=== PATIENT | female | born 1980 | race African-American/Black ===

== ENCOUNTER 2023-12-06 07:41 | Outpatient (CLI) | payer BC, SELFPAY ==
--- NOTE | ~2023-12-06 | MR_ITS ---
EXAMINATION: MR knee LT wo con DATE: 12/06/2023 09:27 INDICATION: Mechanical tear of the medial meniscus of the left knee TECHNIQUE: Magnetic resonance imaging (MRI) of the left knee was performed without intravenous contra st. Sequences included coronal PD-weighted FSE, coronal PD-weighted FS FSE, sagittal T2-weighted FSE , sagittal PD-weighted FS FSE and axial PD weighted fat saturated FSE. COMPARISON: None. FINDINGS: Medial compartment: Medial meniscus is normal. Articular cartilage is normal. Lateral compartment: Lateral meniscus is normal. Articular cartilage is normal. Patellofemoral compartment: Chondral swelling and partial-thickness fissuring at the medial patellar facet. Trochlear cartilage i s normal. Ligaments and tendons: The posterior cruciate ligament is normal. Complete tear of the proximal aspect of the anterior cruci ate ligament. There is mild thickening and increased signal of the proximal medial collateral ligamen t with some surrounding edema consistent with low-grade sprain. The fibular collateral ligament appea rs normal but is surrounded by mild soft tissue edema is equivocal for additional low-grade sprain. T he extensor mechanism is normal. The visualized medial and lateral hamstring tendons as well as the i liotibial band are normal. Fluid: Moderate-sized likely reactive left knee joint effusion. No loose osteochondral bodies identified. Osseous/other: There is marrow edema at the lateral sulcus of the lateral femoral condyle and along the posterior ma rgin of both medial and lateral tibial plateaus. Each location there is linear low signal in the subc ortical trabecular bone consistent with nondisplaced impaction fractures. No evident cortical disrupt ion. Otherwise normal marrow signal with no pathologic marrow replacing process. IMPRESSION: 1. Complete tear of the anterior cruciate ligament, low to moderate grade sprain of the proximal medi al collateral ligament and possible low-grade sprain of the fibular collateral ligament. 2. Subcortical trabecular impaction fracture lines without evident cortical disruption at the lateral sulcus of the lateral femoral condyle and along the posterior margin of the medial and lateral tibia l plateaus. 3. Likely reactive moderate sized left knee joint effusion. 4. Normal cartilage and menisci. Reviewed, dictated and finalized at location A. IMPRESSION: 1. Complete tear of the anterior cruciate ligament, low to moderate grade sprai n of the proximal medial collateral ligament and possible low-grade sprain of t he fibular collateral ligament. 2. Subcortical trabecular impaction fracture lines without evident cortical dis ruption at the lateral sulcus of the lateral femoral condyle and along the post erior margin of the medial and lateral tibial plateaus. 3. Likely reactive moderate sized left knee joint effusion. 4. Normal cartilage and menisci.
== END 2023-12-06 07:42 | disposition home or self-care (01) ==
LOC: ANHIMG 08:36
PROVIDERS: Visit Provider Orthopaedic Surgery
DX: S83.212A Bucket-handle tear of medial meniscus, current injury, left knee, initial encounter (principal); X58.XXXA Exposure to other specified factors, initial encounter; S83.512A Sprain of anterior cruciate ligament of left knee, initial encounter; M25.462 Effusion, left knee
CPT/HCPCS: 73721